=== PATIENT | female | born 1960 | race African-American/Black ===

== ENCOUNTER 2020-06-28 21:23 | Emergency (ER) | payer MEDICAID, SELFPAY ==
[2020-06-28 21:53] VITALS: BP 144/79; PULSE 84; RESP 20; TEMP 36.8; O2SAT 99; BMI 16.4
--- NOTE | 2020-06-28 23:46 | ED.GENADULT ---
HPI - General Adult General Chief complaint: ETOH/Substance Use Stated complaint: DEPRESSION Time Seen by Provider: 06/28/20 22:43 Source: patient Mode of arrival: ambulatory Limitations: no limitations History of Present Illness HPI narrative: Patient comes to emergency room complaining of withdrawing from Suboxone. Patient states she thinks that somebody might have stolen her Suboxone 2 days ago. Patient states 3 in a week since she last used heroin. Tonight, patient was kicked out by her friend or significant other, patient intoxicated, denies SI or HI complaint: Withdrawing from Suboxone Related Data Home Medications Medication Instructions Recorded Confirmed buprenorphine-naloxone [Suboxone] 1 tab SUBLINGUAL DAILY 06/29/20 06/29/20 Previous Rx's Medication Instructions Recorded loperamide 2 mg PO Q6H PRN #10 cap 06/29/20 ondansetron HCl [Zofran] 4 mg PO Q6H PRN #10 tab 06/29/20 Allergies Allergy/AdvReac Type Severity Reaction Status Date / Time No Known Allergies Allergy Verified 06/28/20 23:43 Review of Systems Review of Systems: Constitutional : N no fever no chills ENT/Mouth : No Hearing loss, No Ear Pain, No Nasal Congestion, No Sinus Pain, No Hoarseness, No sore throat, No Rhinorrhea, No Swallowing Difficulty Eyes: No Eye Pain, No Swelling, No Redness, No Foreign Body, No Discharge, No Vision Changes Cardiovascular : No Chest Pain, No SOB, No Dyspnea on Exertion, No Orthopnea, No Edema, No Palpitations Respiratory : No Cough, No Sputum, No Wheezing, No Smoke Exposure, No Dyspnea Gastrointestinal : ,patient complaining of nausea vomiting and diarrhea No abdominal Pain, No Hematochezia, No Melena Genitourinary : no irregular bleeding, No Dysuria, No Urinary Frequency, No Hematuria, No Urinary Incontinence, No Urgency, No Flank Pain, No Urinary Flow Changes, No Hesitancy Musculoskeletal : Patient complaining of generalized myalgias, feeling uncomfortable Skin : No Skin Lesions, No rash Neuro : No Weakness, No Numbness, No Paresthesias, No Loss of Consciousness, No Dizziness, No Headache Psych : No Anxiety/Panic, No Depression, No SI/HI/AH/VH, No Social Issues, Heme/Lymph: No Bruising, No Bleeding,No Lymphadenopathy Endocrine : No Polyuria, No Polydipsia, No Temperature Intolerance [facility] Past Medical History Medical History (Updated 06/29/20 @ 01:02 by Courtney Sharma MD) Substance abuse Social History Social History Alcohol intake: unknown Smoking Status: Unknown if ever smoked Use of substances other than those prescribed or required for medical reasons: Refusing to respond Advance Directives: No Advance Directives Information Provided: Yes Physical Exam Vital Signs: Vital Signs: Last Vital Signs Temp 97.8 F 06/28/20 23:59 Pulse 71 06/28/20 23:59 Resp 18 06/28/20 23:59 BP 144/89 H 06/28/20 23:59 Pulse Ox 97 06/28/20 23:59 Body Mass Index 16.4 Appearance: Alert. Patient is intoxicated, agitated Eyes: Pupils equal, round and reactive to light. ENT: Pharynx normal. Neck: Normal inspection. Neck supple. No lymph nodes noted. No crepitus CVS: Normal heart rate and rhythm. Pulses normal. Normal S1 and S2 Respiratory: No respiratory distress. Breath sounds normal. No Wheezing. No rales Abdomen: Soft and nontender. No rigidity. No distention. good BS x4 Skin: Skin warm and dry. Normal skin color. Normal skin turgor. Extremities: No lower extremity edema. No lower extremity edema. No Lacerations. No Rash Neuro:o motor deficit. No sensory deficit. Moving all extermities. No slurred speech. Course Course Course Narrative: Patient was given tramadol for the generalized body aches from withdrawal, also given symptomatic treatment for the vomiting and diarrhea. Patient needs to follow up with her Suboxone clinic this morning. At this time, patient is sleeping, once a week she may be discharged. Sign out given to Dr. Velázquez. Discharge Plan Discharge Clinical Impression: Opiate withdrawal Patient Disposition: Home, Self-Care Instructions: Opioid Withdrawal (ED) Additional Instructions: Please follow-up at your Suboxone clinic this morning. Please follow-up with your primary care physician tomorrow. If you have any worsening or new symptoms, please return to the emergency room or call 911 Prescriptions: New ondansetron HCl [Zofran] 4 mg tablet 4 mg PO Q6H PRN (Reason: nausea and vomiting) Qty: 10 RF: 0 loperamide 2 mg capsule 2 mg PO Q6H PRN (Reason: loose stool) Qty: 10 RF: 0 No Action buprenorphine-naloxone [Suboxone] 8-2 mg Tablet, Sublingual 1 tab SUBLINGUAL DAILY RF: 0
[2020-06-28 23:49] VITALS: BP 144/89; PULSE 71
[2020-06-28] MEDS: Loperamide HCl 2 MG CAPSULE PO (23:49)
[2020-06-28] MEDS: cloNIDine HCL 0.2 MG TABLET PO (23:49)
[2020-06-28 23:59] VITALS: BP 144/89; PULSE 71; RESP 18; TEMP 36.6; O2SAT 97
--- NOTE | 2020-06-29 00:06 | PC.NURSE ---
patient is on suboxone, stating unsure if she had it today. patient able to follow instructions but is restless. medicated per emar, provider is aware of patient stating generalized discomfort. patient having several episodes of loose stool. changed bedding multiple times, patient repositioned onto side.
[2020-06-29 00:15] VITALS: PULSE 71
[2020-06-29 01:14] VITALS: PULSE 75
[2020-06-29 01:47] VITALS: BP 126/80; PULSE 72; RESP 16; TEMP 36.4; O2SAT 98
[2020-06-29 03:34] VITALS: BP 101/62; PULSE 72; RESP 16; O2SAT 96
[2020-06-29 06:00] VITALS: RESP 16
--- NOTE | 2020-06-29 07:09 | PC.NURSE ---
REPORT FROM GISELLE CASEY PT SLEEPING AT THIS TIME
[2020-06-29 08:35] VITALS: BP 156/78; PULSE 69; O2SAT 96
[2020-06-29] MEDS: Buprenorphine/Naloxone 8/2 mg FILM 1 FILM SUBLINGUAL (09:14)
--- NOTE | 2020-06-29 09:21 | PC.NURSE ---
REPORT RECIEVED FROM JACINTO PURDY. PT IS ALERT, RR EVEN, SPEAKS IN FULL SENTENCES, SKIN IS PWDI, AND SHE IS IN NAD. SHE IS REQUESTING HER DOSE OF SUBOXONE. CALL WAS PLACED TO [facility] TO CONFIRM PRESCRIPTION. DR BILLY NOTIFIED OF DOSE AND ORDERED. PT MEDICATED PER EMAR. PLAN IS FOR CASE MANAGEMENT AND THE CARE TEAM TO FOLLOW UP WITH PT.
--- NOTE | 2020-06-29 09:45 | MHC.CARE ---
Recovery Support note: Patient is a 59 year old Finnish speaking female who presented to [facility] reporting that her significant other kicked her out and that she is in withdrawal due to missing a dose of Suboxone. Patient was medicated with Suboxone while in the emergency room. This blog writer met with patient with an [facility] spoke maker. Patient denies housing insecurity, reporting that she has a safe apartment of her own that she can return to. Patient reports that she gets Suboxone through the [facility] and that it is convenient and working out well for her. Patient denies SI and also denies HI. Patient does not appear to be responding to any internal stimuli. Patient is requesting to return home at this time. Discussed case with patient's ED provider.
--- NOTE | 2020-06-29 10:20 | MHC.CM.ED ---
Received case management consult overnight. Patien seen by [facility] team this morning and will be going home with resumption of MAT through [facility]. Chair van booked as next available. Med nec in chart. Patient, Dr Moore and JACINTO Colindres aware. Continue to monitor for d/c needs.
== END 2020-06-29 11:37 | disposition home or self-care (01) ==
PROVIDERS: Emergency Provider Emergency Medicine
DX: F11.13 Opioid abuse with withdrawal (principal); F33.1 Major depressive disorder, recurrent, moderate; Z79.899 Other long term (current) drug therapy
CPT/HCPCS: 99285; J0574

== ENCOUNTER → 2020-10-05 08:57 | Outpatient (BNVA) | payer MEDICAID, SELFPAY | PROVIDERS: PCP Internal Medicine; Visit Provider Surgery | DX: L02.31 Cutaneous abscess of buttock (principal) | CPT/HCPCS: 99202 ==

== ENCOUNTER 2021-12-11 00:42 | Emergency (ER) | payer MEDICAID, SELFPAY ==
[2021-12-11 00:45] VITALS: BP 100/55; BP 111/67; PULSE 109; PULSE 122; RESP 18; TEMP 36.8; O2SAT 97; O2SAT 99; BMI 18.2
--- NOTE | 2021-12-11 00:55 | ECG_ITS ---
Test Reason : CHEST PAIN Blood Pressure : / mmHG Vent. Rate : 108 BPM Atrial Rate : 108 BPM P-R Int : 128 ms QRS Dur : 068 ms QT Int : 370 ms P-R-T Axes : 071 065 081 degrees QTc Int : 495 ms Sinus tachycardia Otherwise normal ECG When compared with ECG of 29-JUL-2016 21:10, Vent. rate has increased BY 54 BPM Referred By: Generic ED Physician Electronically Signed By:ROSEY BUITRAGO MD
[2021-12-11 01:32] LABS: Basophils Percent Auto 0.5 % (0-2); Eosinophils Absolute Auto 0.1 X10*3/uL (0.0-0.4); Eosinophils Percent Auto 0.9 % (0-4); Hemoglobin 9.2 g/dl (12.0-16.0); Imm Gran Abs Auto 0.01 X10*3/uL (0.00-0.03); Imm Gran Pct Auto 0.1 % (0.0-0.4); Lymphocytes Absolute Auto 4.8 X10*3/uL (1.2-4.9); Lymphocytes Percent Auto 59.9 % (20-40); MANUAL DIFF FLAG NO; Mean Corpuscular HGB Conc 32.9 g/dl (31.0-35.0); Mean Corpuscular Hemoglobin 36.5 pg (27.0-33.0); Mean Platelet Volume 10.1 fL (9.4-12.3); Monocytes Absolute Auto 0.8 X10*3/uL (0.1-1.2); Neutrophils Absolute Auto 2.3 x10*3/uL (2.0-8.3); Neutrophils Percent Auto 28.6 % (45-73); Platelet Count 118 X10*3/uL (160-400); Red Blood Count 2.52 X10*6/uL (4.20-5.50); Red Cell Distribution Width 15.8 % (11.0-16.0)
[2021-12-11 01:34] LABS: Mean Corpuscular Volume 111.1 fL (80.0-98.0)
[2021-12-11 01:48] LABS: Alanine Aminotransferase 40 U/L (0-31); Albumin Level 3.8 g/dL (3.5-5.0); Alkaline Phosphatase 102 U/L (39-117); Anion Gap 19 (12-20); Aspartate Amino Transferase 62 U/L (5-31); Bilirubin Total 0.4 mg/dL (0.0-1.0); Blood Urea Nitrogen 18 mg/dL (9-16); Calcium 9.6 mg/dL (8.4-10.2); Carbon Dioxide 19 mmol/L (22-29); Chloride 108 mmol/L (96-108); Creatinine Clr Calc Pharmacy 29.1; Estimated Glomerular Filt Rate 36; Glucose Random 78 mg/dL (60-115); Potassium 4.7 mmol/L (3.3-5.1); Sodium 141 mmol/L (135-145); Total Protein 7.1 g/dL (6.5-8.0)
[2021-12-11 01:52] LABS: Troponin-I High Sensitivity 4.4 ng/L (<3.5-17.0)
--- NOTE | 2021-12-11 03:25 | ED_ITS ---
HPI - Chest Pain General Chief Complaint: Chest Pain Stated Complaint: chest pain Time Seen by Provider: 12/11/21 03:12 Source: patient and full time staff interpreter Mode of arrival: EMS History of Present Illness HPI narrative: 61-year-old female brought in by EMS and notes that she was at her friend's house drinking and then started to experience chest pain radiating into her back. Patient also reports headache but denies vomiting or blood per rectum. She does report she is having abdominal discomfort but denies any urinary symptoms, shortness of breath, fever, chills. Related Data Home Medications Medication Instructions Recorded Confirmed Blood Pressure Medication 06/29/20 Blood Thinner 06/29/20 Heart Medication 06/29/20 Medication For Hiv 06/29/20 buprenorphine 8 mg-naloxone 2 mg 1 tab SUBLINGUAL DAILY 06/29/20 06/29/20 sublingual tablet abacavir 600 mg-dolutegravir 50 1 tab PO DAILY 10/05/20 10/05/20 mg-lamivudine 300 mg tablet acetaminophen 325 mg capsule 325 mg PO QID PRN 10/05/20 10/05/20 albuterol sulfate 2.5 mg CONTINUOUS NEBULIZATION Q6H 10/05/20 10/05/20 aspirin 81 mg tablet,delayed 81 mg PO DAILY 10/05/20 10/05/20 release (Adult Aspirin Regimen) atorvastatin 80 mg tablet 80 mg PO DAILY 10/05/20 10/05/20 diphenhydramine HCl 25 mg capsule 25 mg PO BEDTIME 10/05/20 10/05/20 doxycycline hyclate 100 mg capsule 100 mg PO DAILY 10/05/20 10/05/20 fluticasone propionate 110 1 puff INHALATION BID 10/05/20 10/05/20 mcg/actuation HFA aerosol inhaler fluticasone propionate 50 2 spray INTRANASAL DAILY 10/05/20 10/05/20 mcg/actuation nasal spray,suspension lidocaine 5 % topical patch 1 patch TOPICAL DAILY 10/05/20 10/05/20 lisinopril 10 mg tablet 10 mg PO DAILY 10/05/20 10/05/20 omeprazole 20 mg capsule,delayed 20 mg PO DAILY 10/05/20 10/05/20 release quetiapine 25 mg tablet 25 mg PO BID 10/05/20 10/05/20 Previous Rx's Medication Instructions Recorded loperamide 2 mg capsule 2 mg PO Q6H PRN #10 cap 06/29/20 ondansetron HCl 4 mg tablet 4 mg PO Q6H PRN #10 tab 06/29/20 (Zofran) oseltamivir 75 mg capsule (Tamiflu) 75 mg PO Q12H 5 Days #10 cap 12/11/21 Allergies Allergy/AdvReac Type Severity Reaction Status Date / Time No Known Allergies Allergy Unverified 09/07/20 13:53 Review of Systems Review of Systems: Pertinent positives and negatives as stated in HPI 10 point review of systems is otherwise negative. [facility] Past Medical History Source: nursing notes reviewed Medical History AIDS Depression High cholesterol HIV (human immunodeficiency virus infection) HTN (hypertension) Stroke Substance abuse Surgical History History of brain surgery History of coronary artery stent placement Social History Social History Alcohol intake: unknown Advance Directives: No Physical Exam Vital Signs: Vital Signs: Last Vital Signs Temp 98.3 F 12/11/21 00:45 Pulse 109 H 12/11/21 00:45 Resp 18 12/11/21 00:45 BP 111/67 12/11/21 00:45 Pulse Ox 99 12/11/21 00:45 BMI result Body Mass Index 18.2 VITAL SIGNS: Reviewed. GENERAL: Chronically ill, frail, in no acute distress. HEAD: Normocephalic/atraumatic EYES: PERRLA, EOMI EARS: Ext canals without abnormality OROPHARYNX: no oral lesions noted, posterior pharynx clear NECK: Supple, no adenopathy LUNGS: Normal breath sounds. No adventitious sounds or accessory muscle use. SpO2<99> CARDIOVASCULAR: Regular rate and rhythm without noted murmurs ABDOMEN: Soft, non-tender, non-distended with bowel sounds. MUSCULOSKELETAL: No tenderness, deformities, or effusions noted on gross inspe ction. EXTREMITIES: No cyanosis, clubbing or edema. SKIN: Inspection of the skin reveals no rashes NEUROLOGIC: Alert and oriented x 4, patient with baseline left-sided hemiparesis with contractures from prior CVA Course Course Course Narrative: 61-year-old female with history and clinical present consistent with alcohol use and suspect possible pancreatitis, pneumonia, viral symptoms. Review of all investigations demonstrates that patient has mild pancreatitis but is able to tolerate oral intake, patient is also noted to be influenza B positive and has a negative stool guaiac. Patient is also noted to have mild MAURICE and evidence to suggest alcohol intoxication. Patient was informed of all results and received 1 L of IV fluids and subsequent repeat basic metabolic panel and lipase shows resolution of MAURICE and improvement of the lipase value. Patient was otherwise discharged home in stable condition. All results and findings were discussed with her bedside via sign language interpreter and patient will be transferred home via ambulance. MDM - Chest Pain Lab Data Result diagrams: 12/11/21 01:20 12/11/21 06:38 Labs: Lab Results 12/11/21 12/11/21 12/11/21 Range/Units 01:20 01:20 01:20 WBC 8.0 (4.8-10.8) X10*3/uL RBC 2.52 L (4.20-5.50) X10*6/uL Hgb 9.2 L (12.0-16.0) g/dl Hct 28.0 L (37.0-47.0) % MCV 111.1 H (80.0-98.0) fL MCH 36.5 H (27.0-33.0) pg MCHC 32.9 (31.0-35.0) g/dl RDW 15.8 (11.0-16.0) % Plt Count 118 L (160-400) X10*3/uL MPV 10.1 (9.4-12.3) fL Immature Gran % (Auto) 0.1 (0.0-0.4) % Neut % (Auto) 28.6 L (45-73) % Lymph % (Auto) 59.9 H (20-40) % Surry % (Auto) 10.0 (2-11) % Eos % (Auto) 0.9 (0-4) % Baso % (Auto) 0.5 (0-2) % Lymph # (Auto) 4.8 (1.2-4.9) X10*3/uL Surry # (Auto) 0.8 (0.1-1.2) X10*3/uL Eos # (Auto) 0.1 (0.0-0.4) X10*3/uL Baso # (Auto) 0.0 (0.0-0.2) X10*3/uL Abs Immat Gran (auto) 0.01 (0.00-0.03) X10*3/uL Absolute Neuts (auto) 2.3 (2.0-8.3) x10*3/uL Absolute Nucleated RBC 0.000 (0.0-0.012) X10*3/uL Nucleated RBC % (auto) 0.0 (0.0-0.2) /100WBC Sodium 141 (135-145) mmol/L Potassium 4.7 (3.3-5.1) mmol/L Chloride 108 (96-108) mmol/L Carbon Dioxide 19 L (22-29) mmol/L Anion Gap 19 (12-20) BUN 18 H (9-16) mg/dL Creatinine 1.47 H (0.5-1.4) mg/dL Estim Creat Clear Calc 29.1 Estimated GFR 36 Random Glucose 78 (60-115) mg/dL Calcium 9.6 (8.4-10.2) mg/dL Total Bilirubin 0.4 (0.0-1.0) mg/dL AST 62 H (5-31) U/L ALT 40 H (0-31) U/L Alkaline Phosphatase 102 (39-117) U/L Troponin I High Sens 4.4 (<3.5-17.0) ng/L Total Protein 7.1 (6.5-8.0) g/dL Albumin 3.8 (3.5-5.0) g/dL Lipase 120 H (8-78) U/L Stool Occult Blood (NEGATIVE) Ethyl Alcohol mg/dL COVID-19 (ENRIQUE) (Negative) COVID-19 Clin Com Influenza Type A (KEI) (Negative) Influenza Type B (KEI) (Negative) Influenza A & B Note 12/11/21 12/11/21 12/11/21 Range/Units 01:20 04:05 04:05 WBC (4.8-10.8) X10*3/uL RBC (4.20-5.50) X10*6/uL Hgb (12.0-16.0) g/dl Hct (37.0-47.0) % MCV (80.0-98.0) fL MCH (27.0-33.0) pg MCHC (31.0-35.0) g/dl RDW (11.0-16.0) % Plt Count (160-400) X10*3/uL MPV (9.4-12.3) fL Immature Gran % (Auto) (0.0-0.4) % Neut % (Auto) (45-73) % Lymph % (Auto) (20-40) % Surry % (Auto) (2-11) % Eos % (Auto) (0-4) % Baso % (Auto) (0-2) % Lymph # (Auto) (1.2-4.9) X10*3/uL Surry # (Auto) (0.1-1.2) X10*3/uL Eos # (Auto) (0.0-0.4) X10*3/uL Baso # (Auto) (0.0-0.2) X10*3/uL Abs Immat Gran (auto) (0.00-0.03) X10*3/uL Absolute Neuts (auto) (2.0-8.3) x10*3/uL Absolute Nucleated RBC (0.0-0.012) X10*3/uL Nucleated RBC % (auto) (0.0-0.2) /100WBC Sodium (135-145) mmol/L Potassium (3.3-5.1) mmol/L Chloride (96-108) mmol/L Carbon Dioxide (22-29) mmol/L Anion Gap (12-20) BUN (9-16) mg/dL Creatinine (0.5-1.4) mg/dL Estim Creat Clear Calc Estimated GFR Random Glucose (60-115) mg/dL Calcium (8.4-10.2) mg/dL Total Bilirubin (0.0-1.0) mg/dL AST (5-31) U/L ALT (0-31) U/L Alkaline Phosphatase (39-117) U/L Troponin I High Sens 4.1 (<3.5-17.0) ng/L Total Protein (6.5-8.0) g/dL Albumin (3.5-5.0) g/dL Lipase (8-78) U/L Stool Occult Blood (NEGATIVE) Ethyl Alcohol 228 mg/dL COVID-19 (ENRIQUE) (Negative) COVID-19 Clin Com Influenza Type A (KEI) Negative (Negative) Influenza Type B (KEI) Positive A (Negative) Influenza A & B Note See Note 12/11/21 12/11/21 12/11/21 Range/Units 04:05 04:28 06:38 WBC (4.8-10.8) X10*3/uL RBC (4.20-5.50) X10*6/uL Hgb (12.0-16.0) g/dl Hct (37.0-47.0) % MCV (80.0-98.0) fL MCH (27.0-33.0) pg MCHC (31.0-35.0) g/dl RDW (11.0-16.0) % Plt Count (160-400) X10*3/uL MPV (9.4-12.3) fL Immature Gran % (Auto) (0.0-0.4) % Neut % (Auto) (45-73) % Lymph % (Auto) (20-40) % Surry % (Auto) (2-11) % Eos % (Auto) (0-4) % Baso % (Auto) (0-2) % Lymph # (Auto) (1.2-4.9) X10*3/uL Surry # (Auto) (0.1-1.2) X10*3/uL Eos # (Auto) (0.0-0.4) X10*3/uL Baso # (Auto) (0.0-0.2) X10*3/uL Abs Immat Gran (auto) (0.00-0.03) X10*3/uL Absolute Neuts (auto) (2.0-8.3) x10*3/uL Absolute Nucleated RBC (0.0-0.012) X10*3/uL Nucleated RBC % (auto) (0.0-0.2) /100WBC Sodium 140 (135-145) mmol/L Potassium 4.3 (3.3-5.1) mmol/L Chloride 109 H (96-108) mmol/L Carbon Dioxide 23 (22-29) mmol/L Anion Gap 12 (12-20) BUN 17 H (9-16) mg/dL Creatinine 1.08 (0.5-1.4) mg/dL Estim Creat Clear Calc 39.6 Estimated GFR 52 Random Glucose 117 H (60-115) mg/dL Calcium 9.0 D (8.4-10.2) mg/dL Total Bilirubin (0.0-1.0) mg/dL AST (5-31) U/L ALT (0-31) U/L Alkaline Phosphatase (39-117) U/L Troponin I High Sens (<3.5-17.0) ng/L Total Protein (6.5-8.0) g/dL Albumin (3.5-5.0) g/dL Lipase 91 H (8-78) U/L Stool Occult Blood NEGATIVE (NEGATIVE) Ethyl Alcohol mg/dL COVID-19 (ENRIQUE) Negative (Negative) COVID-19 Clin Com See Note Influenza Type A (KEI) (Negative) Influenza Type B (KEI) (Negative) Influenza A & B Note ECG Data ECG #1: Attestation: I personally reviewed and interpreted this ECG as follows: Prior ECG tracings: available for review Interpretation: Sinus tachycardia, HR-108, no STEMI, [place]/QRS/QTC are within normal limits. Discharge Plan Discharge Clinical Impression: Influenza B, Alcohol intoxication, Pancreatitis Patient Disposition: Home, Self-Care Instructions: Pancreatitis (ED), Influenza (ED), Alcohol Intoxication (ED) Additional Instructions: 1. Reanudar todos los medicamentos caseros seg?n lo prescrito. 2. Noemi un seguimiento con gee proveedor de atenci?n primaria en los pr?ximos 1 a 2 d?as para regla reevaluaci?n de gee anemia. 3. Incrementa la hidrataci?n especialmente con agua, no con alcohol. Regrese a la jacques de emergencias si los s?ntomas empeoran. Prescriptions: New oseltamivir [Tamiflu] 75 mg capsule 75 mg PO Q12H 5 Days Qty: 10 0RF No Action buprenorphine-naloxone [Suboxone] 8-2 mg Tablet, Sublingual 1 tab SUBLINGUAL DAILY 0RF ondansetron HCl [Zofran] 4 mg tablet 4 mg PO Q6H PRN (Reason: nausea and vomiting) Qty: 10 0RF loperamide 2 mg capsule 2 mg PO Q6H PRN (Reason: loose stool) Qty: 10 0RF Heart Medication 0RF Blood Pressure Medication 0RF Blood Thinner 0RF Medication For Hiv 0RF albuterol sulfate 2.5 mg /3 mL (0.083 %) solution for nebulization 2.5 mg continuous nebulization Q6H 0RF atorvastatin 80 mg tablet 80 mg PO DAILY 0RF doxycycline hyclate 100 mg capsule 100 mg PO DAILY 0RF fluticasone propionate 50 mcg/actuation spray,suspension 2 spray intranasal DAILY 0RF Rx Instructions: administer into each nostril fluticasone propionate 110 mcg/actuation HFA aerosol inhaler 1 puff inhalation BID 0RF lidocaine 5 % adhesive patch,medicated 1 patch topical DAILY 0RF Rx Instructions: leave on most painful area for up to 12 hrs lisinopril 10 mg tablet 10 mg PO DAILY 0RF aspirin [Adult Aspirin Regimen] 81 mg tablet,delayed release (DR/EC) 81 mg PO DAILY 0RF omeprazole 20 mg capsule,delayed release(DR/EC) 20 mg PO DAILY 0RF quetiapine 25 mg tablet 25 mg PO BID 0RF [id number] 600-50-300 mg tablet 1 tab PO DAILY 0RF acetaminophen 325 mg capsule 325 mg PO QID PRN0RF diphenhydramine HCl 25 mg capsule 25 mg PO BEDTIME 0RF Referrals: [facility] [Primary Care Provider] - Print Language: Tamazight
[2021-12-11 03:41] LABS: Ethanol 228 mg/dL
[2021-12-11 03:44] LABS: Lipase 120 U/L (8-78)
[2021-12-11] MEDS: Acetaminophen 325 MG TABLET 650 MG PO (04:09)
[2021-12-11] MEDS: 0.9 % Sodium Chloride 1,000 ML 999 ML IV (04:18)
[2021-12-11 04:29] LABS: COVID-19 Test Negative (Negative); IDNOW Serial# 16C4AD1C; Influenza A Negative (Negative); Influenza B2 Positive (Negative)
[2021-12-11 04:34] LABS: Troponin-I High Sensitivity 4.1 ng/L (<3.5-17.0)
[2021-12-11 04:38] LABS: OBS Int Ctl Valid YES; OBS1 NEGATIVE (NEGATIVE)
[2021-12-11 07:18] LABS: Anion Gap 12 (12-20); Blood Urea Nitrogen 17 mg/dL (9-16); Carbon Dioxide 23 mmol/L (22-29); Chloride 109 mmol/L (96-108); Creatinine Clr Calc Pharmacy 39.6; Estimated Glomerular Filt Rate 52; Glucose Random 117 mg/dL (60-115); Lipase 91 U/L (8-78); Potassium 4.3 mmol/L (3.3-5.1); Sodium 140 mmol/L (135-145)
[2021-12-11 08:23] VITALS: BP 164/95; PULSE 104; RESP 16; O2SAT 100
== END 2021-12-11 08:43 | disposition home or self-care (01) ==
PROVIDERS: Emergency Medicine; Emergency Provider Student in an Organized Health Care Education/Training Program
DX: J10.1 Influenza due to other identified influenza virus with other respiratory manifestations (principal); K85.90 Acute pancreatitis without necrosis or infection, unspecified; R07.89 Other chest pain; M54.50 Low back pain, unspecified; F10.129 Alcohol abuse with intoxication, unspecified; Y90.7 Blood alcohol level of 200-239 mg/100 ml; Z20.822 Contact with and (suspected) exposure to COVID-19; Z79.899 Other long term (current) drug therapy
CPT/HCPCS: 36415; 80048; 80053; 82077; 82272; 83690; 84484; 85025; 87502; 87635; 93005; 96360; 99284